=== PATIENT | female | born 1980 | race African-American/Black ===

== ENCOUNTER → 2018-12-06 | Outpatient (CLI) | payer OTHER ==
[2018-12-06 10:27] LABS: HEMOGLOBIN A1c 5.3 %
[2018-12-06 11:11] LABS: FREE T4 1.14 NG/DL (0.76-1.46); RHEUMATOID FACTOR QUANT < 10.0 IU/ML (<15.0); THYROID STIMULATING HORMONE 0.345 uIU/ML (0.358-3.740); TOTAL PROTEIN 7.9 GM/DL (6.4-8.2)
[2018-12-10 08:50] LABS: VITAMIN B12 LEVEL 652 PG/ML (232-1245)
[2018-12-11 13:03] LABS: ALBUMIN 4.35 GM/DL (3.29-5.55); ALPHA-1-GLOBULINS 0.32 GM/DL (0.17-0.41); ALPHA-2-GLOBULINS 0.81 GM/DL (0.42-0.99); ALPHA-2-GLOBULINS % 10.2 % (7.1-11.8); BETA-1-GLOBULINS 0.55 GM/DL (0.28-0.60); BETA-2-GLOBULINS 0.51 GM/DL (0.19-0.55); BETA-2-GLOBULINS % 6.5 % (3.2-6.5); GAMMA GLOBULIN % 17.3 % (11.1-18.8); GAMMA GLOBULINS 1.37 GM/DL (0.65-1.58)
[2018-12-11 13:38] LABS: FOLATE > 24.0 NG/ML
== END ==
LOC: M LAB 09:27
PROVIDERS: ATTEND Psychiatry & Neurology Neurology
DX: E07.9 Disorder of thyroid, unspecified (principal)